=== PATIENT | male | born 1970 | race Caucasian/White ===

== ENCOUNTER 2018-01-06 09:45 | Emergency (ER) | payer MEDICAID ==
[~2018-01-06] VITALS: Ht 175.3 cm; Wt 90.9 kg
[2018-01-06 09:53] VITALS: TEMP 98.3
[2018-01-06 10:32] LABS: BASO % 0.3 % (0.0-2.0); EOS % 0.1 % (0-4.0); GRAN # 12.1 (1.4-6.5); GRAN % 85.2 % (42.2-75.2); HEMATOCRIT 44.7 % (42.0-52.0); LYMPH # 0.7 (1.2-3.4); LYMPH % 4.8 % (20.0-51.0); MEAN CELL VOLUME 84 fl (80.0-100.0); MEAN CORPUSCULAR HEMOGLOBIN 28 pg (27.0-31.0); MEAN CORPUSCULAR HGB CONC 34 g/dl (33.0-37.0); MEAN PLATELET VOLUME 11.2 fl (7.4-10.4); MONO # 1.2 (0.1-0.6); MONO % 8.5 % (1.7-9.3); PLATELET COUNT 294 K/mm3 (130-400); RED BLOOD COUNT 5.31 M/mm3 (4.20-5.60); REDCELL DISTRIBUTION WIDTH-CV 14.4 % (11.5-14.5)
[2018-01-06 10:40] LABS: ALBUMIN 3.5 gm/dL (3.5-5.0); BILIRUBIN,TOTAL 1.2 mg/dL (0.0-1.0); CALCIUM 8.3 mg/dL (8.4-10.2); CREATININE, serum 1.45 mg/dL (0.66-1.25); MAGNESIUM 2.6 mg/dL (1.6-2.3); PHOSPHOROUS 2.2 mg/dL (2.5-4.5); POTASSIUM 3.5 mmol/L (3.4-5.0); TOTAL PROTEIN 7.1 gm/dL (6.4-8.2)
[2018-01-06 11:22] VITALS: BP 157/107; PULSE 90
== END 2018-01-06 11:35 | disposition short-term general hospital (02) ==
LOC: COL.ER 09:45 → EDSEX 09:47 → COL.ER 09:47
PROVIDERS: Emergency Medicine
DX: T22.241A Burn of second degree of right axilla, initial encounter (principal); T21.21XA Burn of second degree of chest wall, initial encounter; T21.22XA Burn of second degree of abdominal wall, initial encounter; T22.211A Burn of second degree of right forearm, initial encounter; Z23 Encounter for immunization; X08.8XXA Exposure to other specified smoke, fire and flames, initial encounter; Y92.009 Unspecified place in unspecified non-institutional (private) residence as the place of occurrence of the external cause
CPT/HCPCS: J7120

== ENCOUNTER → 2018-02-14 | Outpatient (CLI) | payer MEDICAID ==
[~2018-02-14] MED LIST: ALMACONE 360 M360 ML PO; ANTI-DIARRHEAL2 MG PO; BACTROBAN 22GM22 GM TOP; DUO-KAPS1 CAP PO; FERROUS SU325 MG/TAB PO; GAS RELIEF80 MG PO; K-TAB20 PO; LAMISIL1% TP; NORVASC 10MG10 MG PO; PRIL40 PO; PRINIVIL20 MG PO; PROBIOTIC ACID1 EAC3 PO; PROTONIX 40MG T40 MG PO; ROXICODONE 55 MG/TAB PO; SENOKOT S 50 MG1 TAB PO; TYLENOL 325MG325 MG PO; ZOFRAN 4MG T4 MG/TAB PO
== END ==
LOC: COL.RAD 08:59
DX: R60.0 Localized edema (principal); R06.02 Shortness of breath; R07.89 Other chest pain
CPT/HCPCS: Q9967

== ENCOUNTER 2018-03-31 10:00 | Outpatient (RCR) | payer MEDICAID | END 2018-05-05 | disposition home or self-care (01) | LOC: WSPT | DX: T22.341D Burn of third degree of right axilla, subsequent encounter (principal); T21.31XD Burn of third degree of chest wall, subsequent encounter; T21.32XD Burn of third degree of abdominal wall, subsequent encounter; T22.30XD Burn of third degree of shoulder and upper limb, except wrist and hand, unspecified site, subsequent encounter; T21.34XD Burn of third degree of lower back, subsequent encounter; X06.2XXD Exposure to ignition of other clothing and apparel, subsequent encounter; Z79.899 Other long term (current) drug therapy ==